=== PATIENT | female | born 1950 ===

== ENCOUNTER 2023-09-09 18:05 | Outpatient (REF) | payer MEDICARE, SELFPAY ==
[2023-09-09 21:33] LABS: Lipase 22 U/L (16-77)
== END 2023-09-09 18:06 | disposition home or self-care (01) ==
LOC: NCHCN 18:05
PROVIDERS: Visit Provider Physician Assistant
DX: R82.90 Unspecified abnormal findings in urine (principal)
CPT/HCPCS: 83690; 87077; 85025; 87086; 87186

== ENCOUNTER 2023-09-14 12:29 | Outpatient (REF) | payer MEDICARE, SELFPAY ==
[2023-09-14 14:47] LABS: Abs Immature Grans 0.04 10^3/uL (0.0-0.06); Absolute Basophil Count 0.12 10^3/uL (0.0-0.2); Absolute Eosinophil Count 1.25 10^3/uL (0.0-0.7); Absolute Lymphocyte Count 1.79 10^3/uL (1.2-3.4); Absolute Monocyte Count 0.68 10^3/uL (0.1-0.8); Absolute Neutrophil Count 7.92 10^3/uL (1.2-6.7); Eosinophils % 10.6; HCT 45.1 % (36.0-46.0); HGB 15.2 g/dL (11.2-15.7); Immature Grans % 0.3; Lymphocytes % 15.2; MCH 31.3 pg (27.0-33.0); MCHC 33.7 % (32.0-36.0); MCV 93 fL (80-95); MPV 8.8 fL (8.0-11.0); Monocytes % 5.8; Neutrophils % 67.1; Platelet Count 209 10^3/uL (130-400); RBC 4.86 10^6/uL (3.93-5.22); RDW-SD 41.2 fL
[2023-09-14 15:10] LABS: ALT 18 U/L (14-59); AST 19 U/L (15-37); Albumin 4.6 g/dL (3.4-5.0); Alkaline Phosphatase 78 U/L (46-116); Anion Gap 11.4 mmol/L (3-11); BUN 13 mg/dL (7-18); Bilirubin, Total 0.6 mg/dL (0.2-1.0); CO2 25.6 mmol/L (21.0-32.0); CREATININE 0.8 mg/dL (0.55-1.02); Calcium 9.7 mg/dL (8.5-10.1); Chloride 103 mmol/L (98-107); Estimated GFR 77.75 (mL/min/1.73m2); Glucose 141 mg/dL (74-106); Potassium 4.2 mmol/L (3.5-5.1); Sodium 140 mmol/L (136-145); Total Protein 8.3 g/dL (6.4-8.2)
== END 2023-09-14 12:30 | disposition home or self-care (01) ==
LOC: NCHCN 12:29
PROVIDERS: Visit Provider Nurse Practitioner Family
DX: R10.9 Unspecified abdominal pain (principal); I70.0 Atherosclerosis of aorta
CPT/HCPCS: 80053; 85025

== ENCOUNTER 2024-06-14 17:41 | Outpatient (REF) | payer MEDICARE, SELFPAY ==
[2024-06-14 21:38] LABS: Epithelial Cells Rare HPF (Negative); RBC Negative HPF (0-2)
[2024-06-14 21:39] LABS: Bacteria Few HPF (Negative); C & S Indicated? C&S Done As Ordered; Casts 0-2 Hyaline LPF (Negative)
== END 2024-06-14 17:42 | disposition home or self-care (01) ==
LOC: NCHCN 17:41
PROVIDERS: Visit Provider Nurse Practitioner Family
DX: R82.998 Other abnormal findings in urine (principal)
CPT/HCPCS: 81015; 87086

== ENCOUNTER 2025-03-28 17:56 | Outpatient (REF) | payer MEDICARE, SELFPAY ==
[2025-03-28 17:51] LABS: C & S Indicated? Yes; WBC >50 HPF (0-5)
== END 2025-03-28 17:57 | disposition home or self-care (01) ==
LOC: NCHCN 17:56
PROVIDERS: Visit Provider Nurse Practitioner Family
DX: N39.0 Urinary tract infection, site not specified (principal); B96.29 Other Escherichia coli [E. coli] as the cause of diseases classified elsewhere
CPT/HCPCS: 87077; 81015; 87086; 87186